=== PATIENT | male | born 1985 | race Native Hawaiian/Other Pacific Islander ===

== ENCOUNTER 2019-10-23 13:49 | Emergency (ER) | payer OTHER, SELFPAY ==
[2019-10-23] MEDS ORDERED: TETANUS-DIPHTHERIA TOXOIDS (TD 1 EA SYG IM ONE (14:38)
[2019-10-23] MEDS ORDERED: KETOROLAC TROMETHAMINE INJ 30 MG/ML VIAL IM ONE (14:39)
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
[2019-10-23] MEDS ORDERED: TETANUS,DIPHTHERIA,PERTUSSIS 1 EA SYG IM ONE (15:11)
--- NOTE | 2019-10-23 15:12 | RAD ---
EXAM DESCRIPTION: Hand,Right 3 Views CLINICAL HISTORY: trauma COMPARISON: None Available. TECHNIQUE: AP, LATERAL, AND OBLIQUE FINDINGS: Three views right hand demonstrate all of the fingers held in moderate. Evaluation of the middle and distal phalanges limited. No abnormality of the wrist or hand or metacarpals or proximal phalanges noted. No foreign body noted. IMPRESSION: 1. Negative examination with the middle and distal phalanges poorly visualized. Electronically signed by: Noble Laughlin MD 10/23/2019 3:09 PM CDT
[2019-10-23 15:47] VITALS: BP 110/73; TEMP 97.7; O2SAT 97
== END 2019-10-23 15:40 | disposition home or self-care (01) ==
LOC: ER 13:49
DX: S63.91XA Sprain of unspecified part of right wrist and hand, initial encounter (principal); S60.511A Abrasion of right hand, initial encounter; F17.210 Nicotine dependence, cigarettes, uncomplicated; Y04.0XXA Assault by unarmed brawl or fight, initial encounter; Y92.9 Unspecified place or not applicable
CPT/HCPCS: 73130; 90714; J1885